=== PATIENT | female | born 1985 | race Caucasian/White ===

== ENCOUNTER 2020-07-04 05:09 | Day surgery (SDC) | payer OTHER ==
[2020-07-03 13:58] VITALS: BMI 43.8
[2020-07-04 10:45] VITALS: TEMP 100
[2020-07-04 11:36] VITALS: BP 110/60; PULSE 62
== END 2020-07-04 11:30 | disposition home or self-care (01) ==
LOC: JASU-ENDO 05:09
PROVIDERS: ATTEND Internal Medicine Gastroenterology
PROC: 0DB78ZX Excision of Stomach, Pylorus, Via Natural or Artificial Opening Endoscopic, Diagnostic (ICD-10-PCS; principal; 2020-07-04 09:30)
DX: Z01.818 Encounter for other preprocedural examination (principal); Z13.818 Encounter for screening for other digestive system disorders; E66.01 Morbid (severe) obesity due to excess calories; Z68.41 Body mass index [BMI] 40.0-44.9, adult
CPT/HCPCS: 81025; 88305-TC; 88342-TC